=== PATIENT | male | born 1960 | race Caucasian/White ===

== ENCOUNTER 2020-04-09 15:49 | Inpatient (IN) ==
[2020-04-09 16:24] LABS: ABS Eosinophils 0.3 10^3/ul (0-0.6); ABS Lymphocytes 1.8 10^3/ul (1.0-4.8); ABS Monocytes 0.5 10^3/ul (0-0.8); ABS Neutrophils 2.1 10^3/ul (1.5-7.7); Hematocrit 42 % (42-52); Hemoglobin 14.6 g/dL (14.0-18.0); Lymphocyte % 37.4 %; Mean Corpuscular HGB Conc 35 g/dL (31-36); Mean Corpuscular Hemoglobin 31 pg (27-31); Mean Corpuscular Volume 88 fL (80-94); Mean Platelet Volume 8.3 fL (7.4-10.4); Platelet Count 250 10^3/uL (150-450); Red Blood Count 4.77 10^6 /uL (4.18-5.48); Red Cell Distribution Width 13 % (10-15); White Blood Count 4.7 10^3/uL (3.5-10.8)
[2020-04-09 16:43] LABS: INR 1.11 (0.82-1.09)
[2020-04-09 16:49] LABS: ALT 16 U/L (7-52); AST 15 U/L (13-39); Albumin 4.3 g/dL (3.2-5.2); Alkaline Phosphatase 56 U/L (34-104); Anion Gap 5 mmol/L (2-11); BUN/Creatinine Ratio 11.3 (8-20); Blood Urea Nitrogen 9 mg/dL (6-24); CO2 Carbon Dioxide 29 mmol/L (22-32); Chloride 105 mmol/L (101-111); EGFR African American 119.3 (>60); EGFR Non-African American 98.6 (>60); Globulin 2.2 g/dL (2-4); Glucose 92 mg/dL (70-100); Potassium 3.8 mmol/L (3.5-5.0); Sodium 139 mmol/L (135-145); Total Protein 6.5 g/dL (6.4-8.9)
[2020-04-09] MEDS ORDERED: Ondansetron 4 mg VIAL 2 MG/ML 2 ml VIAL IV PRN (18:19)
[2020-04-09] MEDS ORDERED: NS 0.9% 1000 ml BAG 1,000 ML IV SCH (18:30)
[2020-04-09] MEDS ORDERED: Heparin DRIP 25,000 UNITS BAG 25,000 UNITS/500 ML BAG IV SCH (19:00)
[2020-04-09] MEDS ORDERED: Enoxaparin 40 MG/0.4 ML SYR SUBCUT SCH ×2 (19:00→23:45)
[2020-04-09] MEDS ORDERED: Heparin 5000 UNITS/ML 1 mL VIAL IV SCH (19:00)
[2020-04-09 20:09] LABS: EGFR African American 128.5 (>60); EGFR Non-African American 106.2 (>60)
[2020-04-09 22:14] LABS: ABS Eosinophils 0.3 10^3/ul (0-0.6); ABS Lymphocytes 1.7 10^3/ul (1.0-4.8); ABS Monocytes 0.3 10^3/ul (0-0.8); ABS Neutrophils 3.2 10^3/ul (1.5-7.7); Eosinophil % 5.3 %; Hematocrit 42 % (42-52); Hemoglobin 14.6 g/dL (14.0-18.0); Lymphocyte % 30.5 %; Mean Corpuscular HGB Conc 35 g/dL (31-36); Mean Corpuscular Hemoglobin 31 pg (27-31); Mean Corpuscular Volume 87 fL (80-94); Mean Platelet Volume 8.1 fL (7.4-10.4); Nucleated Red Blood Cells % 0.1; Platelet Count 263 10^3/uL (150-450); Red Cell Distribution Width 13 % (10-15); White Blood Count 5.5 10^3/uL (3.5-10.8)
[2020-04-09] MEDS ORDERED: Al Hydrox/Mg Hydrox/Simet LIQ 30 ML UDC PO ONE (22:59)
[2020-04-10] MEDS ORDERED: Enoxaparin 40 MG/0.4 ML SYR SUBCUT SCH
[2020-04-10 05:23] LABS: BUN/Creatinine Ratio 12.6 (8-20); Calcium 8.9 mg/dL (8.6-10.3); EGFR African American 108.3 (>60); EGFR Non-African American 89.5 (>60); Potassium 3.7 mmol/L (3.5-5.0)
[2020-04-10] MEDS ORDERED: NS 0.9% 1000 ml BAG 1,000 ML IV SCH (06:00)
[2020-04-10 08:33] LABS: HDL Cholesterol 51.7 mg/dL
[2020-04-10] MEDS ORDERED: Famotidine IV 10 MG/ML 2 ml VIAL (20 mg) IV SLOW PU ONE (11:56)
[2020-04-10 17:28] VITALS: BP 118/72
== END 2020-04-10 17:34 | disposition home or self-care (01) | DRG 243 ==
LOC: ED 15:49 → MEDTELE 18:19
PROVIDERS: ADMIT Internal Medicine; ATTEND Internal Medicine